=== PATIENT | female | born 1980 | race Caucasian/White ===

== ENCOUNTER → 2020-06-19 13:23 | Outpatient (BNVA) | payer BC, SELFPAY | PROVIDERS: Family Provider Nurse Practitioner Family; PCP Nurse Practitioner Family; Visit Provider Nurse Practitioner Family | DX: J02.9 Acute pharyngitis, unspecified (principal); R50.9 Fever, unspecified; Z20.818 Contact with and (suspected) exposure to other bacterial communicable diseases | CPT/HCPCS: 87635 ==

== ENCOUNTER → 2021-06-07 09:01 | Outpatient (BNVA) | payer BC, SELFPAY | PROVIDERS: Family Provider Nurse Practitioner Family; Visit Provider Specialist | DX: G43.711 Chronic migraine without aura, intractable, with status migrainosus (principal); Z71.89 Other specified counseling | CPT/HCPCS: 99204 ==

== ENCOUNTER → 2021-07-05 08:12 | Outpatient (BNVA) | payer BC, SELFPAY | PROVIDERS: Family Provider Nurse Practitioner Family; Visit Provider Specialist | DX: G43.711 Chronic migraine without aura, intractable, with status migrainosus (principal); F41.8 Other specified anxiety disorders; Z71.89 Other specified counseling | CPT/HCPCS: 99214 ==

== ENCOUNTER → 2021-08-02 07:59 | Outpatient (BNVA) | payer BC, SELFPAY | PROVIDERS: Family Provider Nurse Practitioner Family; Visit Provider Specialist | DX: G43.711 Chronic migraine without aura, intractable, with status migrainosus (principal); Z87.891 Personal history of nicotine dependence | CPT/HCPCS: 99213 ==

== ENCOUNTER 2021-08-07 16:09 | Outpatient (CLI) | payer BC, SELFPAY ==
--- NOTE | 2021-08-07 16:18 | XR_ITS ---
WS: [id number] XR ankle LT min 3V* [id number] REASON FOR EXAM: S99.912A - Unspecified injury of left ankle, initial enco... FINDINGS: The ankle mortise is preserved. No fracture or other focal bone abnormality of the tibia, fibula, or talus. No soft tissue abnormality. XR/XR ankle LT min 3V* [id number] IMPRESSION: No significant bone or joint abnormality.
== END 2021-08-07 16:10 | disposition home or self-care (01) ==
LOC: RAD 16:15
PROVIDERS: Visit Provider Registered Nurse
DX: S99.912A Unspecified injury of left ankle, initial encounter (principal); X58.XXXA Exposure to other specified factors, initial encounter
CPT/HCPCS: 73610